=== PATIENT | male | born 1980 | race Caucasian/White ===

== ENCOUNTER 2017-01-05 13:23 | Emergency (ER) | payer OTHER ==
[2017-01-05 13:27] VITALS: BP 150/85; PULSE 87; TEMP 98.6; BMI 28.2
[2017-01-05] MEDS ORDERED: DIPHTH,PERTUSS(ACELL),TET 0.5 ML DISP.SYRIN IM ONE (13:46)
--- NOTE | 2017-01-05 14:13 | PDOC ---
History of Present Illness - General Chief Complaint: Foreign Body (FB) Stated Complaint: FISH HOOK STUCK IN FINGER Time Seen by Provider: 01/05/17 13:40 History Source: Patient Exam Limitations: No Limitations - History of Present Illness Initial Comments: 01/05/17 14:14 36 yr male no medical history with fish hook stuck in right middle finger for one hr. Past History - Past Medical History Allergies/Adverse Reactions: Allergies Allergy/AdvReac Type Severity Reaction Status Date / Time No Known Allergies Allergy Verified 01/05/17 13:27 Home Medications: Ambulatory Orders Acetaminophen W/ Codeine #3 [Tylenol # 3 -] 1 - 2 tab PO Q4H PRN #10 tablet MDD 8 01/05/17 Other medical history: NONE - Psycho/Social/Smoking Cessation Hx Anxiety: No Suicidal Ideation: No Smoking History: Never smoked Hx Alcohol Use: No Drug/Substance Use Hx: No Substance Use Type: None Review of Systems - Review of Systems Able to Perform ROS?: Yes Is the patient limited Kinyarwanda proficient: No Constitutional: No: Symptoms Reported HEENTM: No: Symptoms Reported Respiratory: No: Symptoms reported Cardiac (ROS): No: Symptoms Reported ABD/GI: No: Symptoms Reported : No: Symptoms Reported Musculoskeletal: No: Symptoms Reported Integumentary: Yes: See HPI *Physical Exam - Vital Signs Last Vital Signs Temp Pulse Resp BP Pulse Ox 98.6 F 87 20 150/85 96 01/05/17 13:24 01/05/17 13:24 01/05/17 13:24 01/05/17 13:24 01/05/17 13:24 - Physical Exam General Appearance: Yes: Nourished, Appropriately Dressed HEENT: positive: EOMI, VANI Musculoskeletal: positive: Normal Inspection Extremity: positive: Normal Capillary Refill, Other (right middle finger tip with fish hook imbeded to back of finger tip) Integumentary: positive: Normal Color, Dry, Warm Neurologic: positive: Fully Oriented, Alert, Normal Mood/Affect, Normal Response , Motor Strength 5/5 Procedures - Additional Procedures Progress: 01/05/17 14:23 right middle digit given digital block wound cleaned with betadine fish hook removed with string tequnique (xray obtained and read prior to removal of superficial hook) pt tolerated well wound cleaned and bandaged ED Treatment Course - RADIOLOGY Radiology Studies Ordered: Category Date Time Status FINGER(S) RIGHT [RAD] Stat Radiology 01/05/17 13:45 Completed - Medications Given in the ED: ED Medications Discontinued Medications Generic Name Dose Route Start Last Admin Trade Name Marnie PRN Reason Stop Dose Admin Diphtheria/Tetanus/Acell Pertussis 0.5 ml 01/05/17 13:46 01/05/17 13:49 Boostrix - IM 01/05/17 13:47 0.5 ml .ONCE ONE Administration Medical Decision Making - Medical Decision Making 01/05/17 14:24 cc: fish hook to finger will remove with string technique tetanus updated will give dig block pt tolerated well tylenol #3 sent to the pharmacy for pain strict wound care instructions explained and all questions asked and answered *DC/Admit/Observation/Transfer Diagnosis at time of Disposition: Fish hook injury of finger of right hand Qualifiers: Encounter type: initial encounter Qualified Code(s): S69.91XA - Unspecified injury of right wrist, hand and finger(s), initial encounter - Discharge Dispostion Disposition: HOME Condition at time of disposition: Good - Prescriptions Prescriptions: Acetaminophen W/ Codeine #3 [Tylenol # 3 -] 1 - 2 tab PO Q4H PRN #10 tablet MDD 8 PRN Reason: Severe Pain - Referrals Referrals: Kit Weaver MD [Primary Care Provider] - - Patient Instructions Additional Instructions: keep clean with soap and water apply bacitracin once a day and keep covered watch for any signs of infection, redness, drainage increased pain or swelling return to the ER take tylenol #3 for severe pain DO NOT DRIVE, OPERATE MACHINERY OR DRINK ALCOHOL
== END 2017-01-05 14:17 | disposition home or self-care (01) ==
LOC: JERFT 13:23
DX: S60.450A Superficial foreign body of right index finger, initial encounter (principal); W45.8XXA Other foreign body or object entering through skin, initial encounter; Y93.89 Activity, other specified; Y92.89 Other specified places as the place of occurrence of the external cause; Y99.8 Other external cause status
CPT/HCPCS: 73140-TC-RT; 90715; 99281-25